=== PATIENT | female | born 1960 | race Caucasian/White ===

== ENCOUNTER 2020-10-10 16:29 | Emergency (ER) | payer OTHER ==
[~2020-10-10] VITALS: Ht 157.5 cm; Wt 68.0 kg
[~2020-10-10 16:29] MED LIST: LOSARTAN-HCTZ1 EAC1 PO; PRILOSEC20 MG PO; SIMVASTATIN20 MG PO; TOPROL XL100 MG PO
[2020-10-10] MEDS ORDERED: POTASSIUM CHLORIDE 20 MEQ TAB CR PO STA (17:25)
--- OUTSIDE RECORDS SUMMARY | 2020-10-10 17:28 | XMS REPORT | Continuity of Care Document ---
Author Author [facility] t Organization [facility] Address 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 9 - HYPERTENSION NO Active 07/24/2015 [facility] [place] Diagnosis Active 2015-07-24 00:01:00 2015-08-12 12:56:00 [facility] 786.5 - CHEST PAIN 786. 5 - CHEST PAIN Active 08/23/2013 [facility] [place] Diagnosis Active 2013-08-23 00:01:00 2013-08-25 09:45:00 [facility] Allergies, Adverse Reactions, Alerts This patient has no known allergies or adverse reactions. Social History Social Habit Start Date Stop Date Quantity Comments Source Sex Assigned At [facility] Social History 2015-08-13 04:59:00 2015-08-13 04:59:00 [facility] Medications This patient has no known medications. Procedures Procedure Date / Time Performed Performing Clinician Sourc e XR CHEST 2 VIEWS 2020-04-12 13:30:00 Emily Mohamud [facility] Plan of Care Planned Activity Planned Date Details Comments Source Future Scheduled Test 2020-07-23 00:00:00 INFLUENZA VACCINE (#1) [code = INFLUENZA VACCINE (#1)] [facility] r Future Scheduled Test 2006 00:00:00 Lipid panel (proce dure) [code = 66677453] [facility] Future Scheduled Test 1982 00:00:00 Screening for [facility] gnant neoplasm of cervix (procedure) [code = 171487461] [facility] Future Scheduled Test 1967 00:00:00 PNEUMOCOCCAL VACCI NE 0-64 YRS (1 of 1 - PPSV23) [code = PNEUMOCOCCAL VACCINE 0-64 YRS (1 of 1 - PPSV23)] [facility] Future Scheduled Test 1961 00:00:00 Screening for priya gnant neoplasm of breast (procedure) [code = 455532346] [facility] Future Scheduled Test 1961 00:00:00 Screening for priya gnant neoplasm of colon (procedure) [code = 023782738] [facility] Encounters Start Date/Time End Date/Time Encounter Type Admission Type [facility] Care Department Encounter ID Source 2015-08-12 12:47:00 2015-08-12 23:59:00 Outpatient Asiya Gross [facility] [id number] Results Test Description Test Time Test Comments Results Result Comments Source RAD, CHEST, 2 VIEWS 2020-04-12 13:32:00 Reason for Exam:->j25.10 FINAL REPORT INDICATION: j25.10 COMPARISON: None TECHNIQUE: Frontal and lateral views of the chest. FINDINGS: Lungs and pleura: Clear lungs. No effusion.Heart and mediastinum: Normal heart size. Unremarkable mediastinal contours.Osseous structures: No acute abnormality.Additional findings: None. IMPRESSION: No acute intrathoracic abnormality. Signed: Angelita Nolasco MDReport Verified Date/Time: 04/12/2020 13:32:32 Reading Location: [facility] Radiology Reading Room Chest 2 Views 2020-04-12 13:32:00 Interface, External Ris In - 04/12/2020 1:35 PM CDTFINAL REPORT INDICATION: j25.10 COMPARISON: None TECHNIQUE: Frontal and lateral views of the chest. FINDINGS: Lungs and pleu ra: Clear lungs. No effusion.Heart and mediastinum: Normal heart size. Unremarkable mediastinal contours.Osseous structures: No acute abnormality.Additional findings: None. IMPRESSION: No acute intrathoracic abnormality. Signed: Angelita Nolasco Verified Date/Time: 04/12/2020 13:32:32 Reading Location: [facility] Radiology Reading Room [facility] BREAST ULTRASOUND BILATERAL 2019-11-21 12:10:58 - BREAST ULTRASOUND BILATERALULTRASOUND OF BOTH BREASTS AND BOTH AXILLA: 11/20/2019CLINICAL: Dense breasts. Comparison is made to exams dated 11/20/2019 mammogram, 10/17/2018 ultrasound, 10/12/2017 ultrasound, and 09/22/2016 ultrasound - [facility]. Real-time ultrasound of both breasts and both axilla and clinical breast exam were performed. No abnormalities were seen sonographically in either breast or either axilla. Clinical breast exam was unremarkable.IMPRESSION: NEGATIVE There is no sonographic evidence of malignancy. Patient has been informed that she has areas of dense breast tissue that could make it difficult to find a small cancer. A screening mammogram and supplemental ultrasound for dense breast tissue is recommended in 1 year. Ritika Birch M.D. dm/:11/21/2019 12:10:58 Sound Recording Technician: Gege PHILLIPS, [facility] sent: BIRADS 1-2 Combo FU Letter Ultrasound BI-RADS: 1 Negative SCR MAMM BILATERAL AVA CAD DIGITAL 2019-11-21 11:31:31 - SCR MAMM BILATERAL AVA CAD DIGITALBILATERAL DIGITAL SCREENING MAMMOGRAM 3D/2D WITH CAD: 11/20/2019CLINICAL: Asymptomatic. Digital breast tomosynthesis was performed in addition to routine CC and MLO views. Current mammographic images were evaluated by either a [employer] M-Vu or a [employer] CAD (computer aided detection system). Comparison is made to exams dated 10/17/2018 mammogram, mammogram, 09/22/2016 mammogram, 07/12/2015 mammogram, and 12/13/[facility] The tissue of both breasts is heterogeneously dense. This may lower the sensitivity of mammography. No suspicious mass, architectural distortion, malignant type calcification, or lymph node abnormality detected. IMPRESSION: NEGATIVEBilateral ultrasound pending for additional evaluation. There is no mammographic evidence of malignancy. Ritika srinivasan/penrad:11/21/2019 11:31:31 Entry: - 11/21/2019 14:29:18Imaging Technologist: Boris PHILLIPS[facility] BI-RADS: 1 Negative BREAST ULTRASOUND BILATERAL 2018-10-17 16:51:00 - DIAG MAMM BILATERAL AVA CAD DIGITALBILATERAL DIGITAL DIAGNOSTIC MAMMOGRAM 3D/2D WITH CAD: 10/17/2018CLINICAL: 12 Month follow-up. Digital breast tomosynthesis was performed in addition to routine CC and MLO views. Current mammographic images were evaluated by either a [employer] M[employer]u or a [employer] ImageChecker CAD (computer aided detection system). Comparison is made to exams dated 10/12/2017 mammo gram, 09/22/2016 mammogram, and 07/12/2015 [facility]. The tissue of both breasts is heterogeneously dense. This may lower the sensitivity of mammography. There are post operative findings and biopsy clips in the right breast. No suspicious mass, architectural distortion, malignant type calcification, or lymph node abnormality detected. INCOMPLETE ASSESSMENT: ADDITIONAL IMAGING EVALUATION RECOMMENDEDUltrasound pending for additional evaluation. Resume annual screening mammography in one year. - BREAST ULTRASOUND BILATERALULTRASOUND OF BOTH BREASTS AND BOTH AXILLA: Comparison is made to exams dated 10/12/2017 mammogram, 09/22/2016 mammogram, and 07/12/2015 [facility]. Real-time ultrasound of both breasts and both axilla was performed. No abnormalities were seen sonographically in either breast or either axilla. Clinical breast exam was unremarkable.IMPRESSION: NEGATIVE There is no sonographic evidence of malignancy. Patient has been informed that she has areas of dense breast tissue that could make it difficult to find a small cancer. A screening mammogram and supplemental ultrasound for dense breast tissue is recommended in 1 year.Ritika Birch M.D. dm/:10/17/2018 16:51:00 Sound Recording Technician: Jannie PHILLIPS, [facility] sent: BIRADS 1-2 Combo FU Letter Mammogram BI-RADS: 0 Indeterminate Ultrasound BI-RADS: 1 Negative DIAG MAMM BILATERAL AVA CAD DIGITAL 2018-10-17 16:51:00 - DIAG MAMM BILATERAL AVA CAD DIGITALBILATERAL DIGITAL DIAGNOSTIC MAMMOGRAM 3D/2D WITH CAD: 10/17/2018CLINICAL: 12 Month follow-up. Digital breast tomosynthesis was performed in addition to routine CC and MLO views. Current mammographic images were evaluated by either a [employer] M-Vu or a [employer] ImageChecker CAD (computer aided detection system). Comparison is made to exams dated 10/12/2017 mammo gram, 09/22/2016 mammogram, and 07/12/2015 mammogram - [facility]-. The tissue of both breasts is heterogeneously dense. This may lower the sensitivity of mammography. There are post operative findings and biopsy clips in the right breast. No suspicious mass, architectural distortion, malignant type calcification, or lymph node abnormality detected. INCOMPLETE ASSESSMENT: ADDITIONAL IMAGING EVALUATION RECOMMENDEDUltrasound pending for additional evaluation. Resume annual screening mammography in one year. - BREAST ULTRASOUND BILATERALULTRASOUND OF BOTH BREASTS AND BOTH AXILLA: Comparison is made to exams dated 10/12/2017 mammogram, 09/22/2016 mammogram, and 07/12/2015 mammogram - [facility]-. Real-time ultrasound of both breasts and both axilla was performed. No abnormalities were seen sonographically in either breast or either axilla. Clinical breast exam was unremarkable.IMPRESSION: NEGATIVE There is no sonographic evidence of malignancy. Patient has been informed that she has areas of dense breast tissue that could make it difficult to find a small cancer. A screening mammogram and supplemental ultrasound for dense breast tissue is recommended in 1 year.Rtiika Birch M.D. dm/:10/17/2018 16:51:00 Sound Recording Technician: Jannie PHILLIPS, [facility] sent: BIRADS 1-2 Combo FU Letter Mammogram BI-RADS: 0 Indeterminate Ultrasound BI-RADS: 1 Negative
--- OUTSIDE RECORDS SUMMARY | 2020-10-10 17:28 | XMS REPORT | Continuity of Care Document ---
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 Phone [employer] Unavailable Un available Problems Problem Status Onset Date Classification Date Reported Comments Source 401.9 - HYPERTENSION NO Active 07/24/2015 [facility] [place] 786.5 - CHEST PAIN Active 08/23/2013 [facility] [place] Medications No Data Provided for This Section Allergies, Adverse Reactions, Alerts No Known Medication Allergies Immunizations No Data Provided for This Section Results No Data Provided for This Section Pathology Reports No Data Provided for This Section Diagnostic Reports Report Value Date Source Retroperitoneal complete w Doppler US EXAM: Retroperitoneal complete with doppler US HISTORY: 401.9 Unspecified Essential Hypertension COMPARISON: None Findings: The right kidney measures 11.7 cm in length. The left kidney measures 10.4 cm in length. The renal parenchyma is normal in echogenicity. There is a 7 mm left renal cyst. No hydronephrosis is visualized. No mass or stone. The urinary bladder is unremarkable. Both ureteral jets are seen. Doppler evaluation was performed of the kidneys. Evaluation of the intrarenal arteries of the right kidney demonstrates normal appearing arterial waveforms with resistive indices ranging from 0.61 to 0.63. Evaluation of the main right renal artery in the hilum shows a normal appearing arterial waveform with peak systolic velocity of 153 cm/sec giving a renal artery to aortic ratio of 2.3. The main renal vein in the hilum is patent. Evaluation of the intrarenal arteries of the left kidney demonstrates normal appearing arterial waveforms with resistive indices ranging from 0.61 to 0.62. Evaluation of the main left renal artery in the hilum shows a normal appearing arterial waveform with peak systolic velocity of 168 cm/sec giving a renal artery to aortic ratio of 2.5. The main renal vein in the hilum is patent. Doppler evaluation of the abdominal aorta and IVC show normal waveforms. IMPRESSION: No sonographic evidence of hemodynamically significant renal artery stenosis. 08/12/2015 [facility] [place] Carotid artery Doppler bilat US Exam: Bilateral Carotid Doppler Ultrasound Reason for Exam: Unspecified essential hypertension Comparison Exam: None Discussion: Real time grayscale, color Doppler imaging, and spectral waveform analysis was performed of the bilateral extracranial carotid arterial system. Right: No significant intimal thickening or plaques seen within the right common carotid artery. Minimal amount of hard plaque seen in the right ICA bulb. The waveforms are within normal limits. The right vertebral artery is antegrade in flow. The highest velocity within the right ICA system is 72 cm/sec. The ICA/CCA ratio is 0.76. Left: No significant intimal thickening or plaques seen within the left common carotid artery. Minimal amount of hard plaque seen in the left ICA bulb. The left vertebral artery is antegrade in flow. The highest velocity within the left ICA system is 82 cm/sec. The ICA/CCA ratio is 0.93. Impression: 1. Minimal amount of plaque seen within the right and left ICA bulbs, without evidence for significant stenoses. (Consensus Panel Villagomez Scale and Doppler ultrasound criteria). 2. Vertebral arteries are antegrade in flow. 08/12/2015 [facility] Esophagus barium swallow Exam: Barium swallow esophagram Reason for Exam: Chest discomfort Comparison Exam: Chest x-ray 11/09/2011 Discussion: Flavorer view of the cervical spine and soft tissues of the neck are unremarkable. Patient ingested air crystals and barium without incident. Upon deglutition, there was no evidence seen for aspiration or penetration. The piriform sinuses are unremarkable. However, there is a persistent crescentic shaped filling defect seen within the left vallecula. If clinically warranted, consider direct endoscopy for further characterization. The esophagus is unremarkable in appearance, without evidence for mucosal abnormalities, abnormal filling defects, or external mass effect. However, there is evidence for a moderate amount of tertiary contraction waves throughout the esophagus. During the examination, there was no evidence seen for gastroesophageal reflux. The visualized portions of the stomach are unremarkable. Fluoro time 2 minutes, 7 seconds. Impression: 1. Moderate amount of tertiary contract ion waves are seen throughout the esophagus. No evidence seen for gastroesophageal reflux. 08/25/2013 [facility] D[facility] Consultation Notes No Data Provided for This Section Discharge Summaries No Data Provided for This Section History and Physicals No Data Provided for This Section Vital Signs No Data Provided for This Section Encounters Location Location Details Encounter Type Encounter Number Reason For Visit Attending Provider ADM Date DC Date Status Source OD [id number] 786.5 - CHEST PAIN CHE TIDWELL 08/25/2013 Active [facility] - [place] [facility] [id number] Asiya Renato 08/12/2015 08/13/2015 [facility] [place] Procedures No Data Provided for This Section Assessment and Plan No Data Provided for This Section Plan of Care No Data Provided for This Section Social History Social History Date Source No data available for this section 08/13/2015 [facility] [place] Family History No Data Provided for This Section Advance Directives No Data Provided for This Section Functional Status No Data Provided for This Section
--- OUTSIDE RECORDS SUMMARY | 2020-10-10 17:28 | XMS REPORT | Clinical Summary ---
Author Author [facility] [employer] Organization 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 Phone Pcp, No PCP Unavailable Allergies Not on File Medications Not on file Active Problems Not on file Encounters Care Team Description Date Type Specialty Emily Mohamud MD Atherosclerosis of [place] coronary arter y of [place] heart without angina pectoris; Screening for ischemic heart disease 04/12/2020 Hospital Encounter Emily Mohamud MD Atherosclerosis of [place] coronary arter y of [place] heart without angina pectoris (Primary Dx); Screening for ischemic heart disease 04/12/2020 Outside Orders after 10/10/2019 Social History Date Tobacco Use Types Packs/Day Years Used Never Assessed Sex Assigned at Date Recorded Not on file Last Filed Vital Signs Not on file Plan of Treatment Health Maintenance Due Date Last Done Comments BREAST CANCER SCREENING 1961 COLON CANCER SCREENING 1961 COLONOSCOPY PNEUMOCOCCAL VACCINE 0-64 1967 YRS (1 of 1 - PPSV23) CERVICAL CANCER SCREENING 1982 PAP ONLY (Age 21-65) LIPID PANEL 2006 INFLUENZA VACCINE (#1) 2020 Procedures Comments Procedure Name Priority Date/Time Associated Diag nosis XR CHEST 2 VIEWS Routine 04/12/2020 Atheroscleros is of [place] 1:30 PM CDT coronary artery of [place] heart without angina pectoris Screening for ischemic heart disease after 10/10/2019 Results * XR Chest 2 Views (04/12/2020 1:30 PM CDT) Specimen Narrative Performed At FINAL REPORT [facility] INDICATION: j25.10 COMPARISON: None TECHNIQUE: Frontal and lateral views of the chest. FINDINGS: Lungs and pleura: Clear lungs. No effus ion. Heart and mediastinum: Normal heart siz e. Unremarkable mediastinal contours. Osseous structures: No acute abnormalit y. Additional findings: None. IMPRESSION: No acute intrathoracic abnormality. Signed: Angelita Nolasco MD Report Verified Date/Time: 04/12/2020 13:32:32 Reading Location: [facility] Reading Room Procedure Note Interface, External Ris In - 04/12/2020 1:35 PM CDT FINAL REPORT INDICATION: j25.10 COMPARISON: None TECHNIQUE: Frontal and lateral views of the chest. FINDINGS: Lungs and pleura: Clear lungs. No effusion. Heart and mediastinum: Normal heart size. Unremarkable mediastinal contours. Osseous structures: No acute abnormality. Additional findings: None. IMPRESSION: No acute intrathoracic abnormality. Signed: Angelita Nolasco MD Report Verified Date/Time: 04/12/2020 13:32:32 Reading Location: [facility] Reading Room Performing Organization Address City/State/Zipcode Ph one Number GE RIS after 10/10/2019 Insurance Type Payer Benefit Subscriber ID Effective Phone Address Plan / Dates Group HMO/POS [facility] [id number] 20-P CARE POS SELECT resent CHOICE [id number]
--- NOTE | 2020-10-10 17:29 | Emergency Department Note ---
History of Present Illnes History of Present Illness Chief Complaint: Abdominal Complaints History of Present Illness This is a 60 year old female Chief Complaint Comment WKS OF INTERMITTAN RT BACK AND RLQ ABD PAIN. PT JOVIAL AND PLEASANT DURING TRIAGE. STATES SHE AND SPOUSE ARE GOING CAMPING TOMORROW, AND SHE WOULD LIKE TO R/O KIDNEY STONE OR APPY. +HYST. +HX STONES, NO UTI S/S. AAOX4, AMBULATORY. NO N/V, NO FEVER, NO DIARRHEA. . Historian: Patient, Family Member Arrival Mode: Car Onset (how long ago): week(s) (2) Location: RLQ ABDOMEN Quality: DULL Radiation: Denies non-radiation, Denies back, Denies neck, Denies extremity, Denies abdomen, Denies periumbilical, Denies flank, Denies proximal, Denies distal, Denies other Severity: mild Onset quality: gradual Duration (how long): week(s) (2) Timing of current episode: intermittent Progression: waxing and waning Chronicity: new Context: Denies recent illness, Denies recent surgery, Denies recent immobilization, Denies recent travel, Denies trauma/injury, Denies new medications, Denies hx of DVT/PE, Denies non-compliance w/ medications, Denies other Relieving factors: none Exacerbating factors: none Associated symptoms: Denies denies other symptoms, Denies confusion, Denies chest pain, Denies cough, Denies diaphoresis, Denies fever/chills, Denies headaches, Denies loss of appetite, Denies malaise, Denies nausea/vomiting, Denies rash, Denies seizure, Denies shortness of breath, Denies syncope, Denies weakness, Denies other Treatments prior to arrival: none Past Medical/Family History Physician Review I have reviewed the patient's past medical and family history. Any updates have been documented here. Past Medical History Recent Fever: No Clinical Suspicion of Infectio: No New/Unexplained Change in Ment: No Past Medical History: Hypertension, Cancer, Kidney Stones, Anxiety, GERD, Hyperlipedemia Other Medical History: MELANOMA REMOVED OFF BACK. (SKIN CANCER) Past Surgical History: Hysterectomy Other Surgery: MELANOMA REMOVED ON BACK Social History Smoking Cessation: Never Smoker Counseling Performed: No Alcohol Use: None Any Illegal Drug Use: No Physically hurt or threatened: No Other Last Tetanus: UTD Any Pre-Existing Lines (PICC,: No Review of Systems Review of Systems Constitutional: Reports no symptoms EENTM: Reports no symptoms Cardiovascular: Reports no symptoms; Denies as per HPI, Denies chest pain, Denies edema, Denies palpitations, Denies syncope, Denies other Respiratory: Reports no symptoms; Denies as per HPI, Denies change in phlegm color, Denies chest congestion, Denies cough, Denies hemoptysis, Denies excessive phlegm production, Denies pain on inspiration, Denies pain with cough, Denies dyspnea, Denies dyspnea on exertion, Denies snoring, Denies stridor, Denies wheezing, Denies other Gastrointestinal: Reports as per HPI Genitourinary: Reports no symptoms Musculoskeletal: Reports no symptoms Integumentary: Reports no symptoms; Denies as per HPI, Denies change in color, Denies change in hair/nails, Denies dryness, Denies lesions, Denies lumps, Denies rash, Denies poor turgor, Denies ecchymosis, Denies other Neurological: Reports no symptoms; Denies as per HPI, Denies headache, Denies numbness, Denies paresthesia, Denies pre-existing deficit, Denies seizure, Denies tingling, Denies tremors, Denies weakness, Denies other Psychological: Reports no symptoms; Denies as per HPI, Denies anxiety, Denies depressed, Denies emotional problems, Denies other Endocrine: Reports no symptoms Hematological/Lymphatic: Reports no symptoms Physical Exam Related Data Allergies: Coded Allergies: Penicillins (Verified Allergy, 11/13/12) Triage Vital Signs Vital Signs Date Time Temp Pulse Resp B/P (MAP) Pulse Ox O2 Delivery O2 Flow Rate FiO2 10/10/20 16:44 99.7 112 20 148/70 98 Room Air Vital signs reviewed: Yes Physical Exam CONSTITUTIONAL Constitutional: Present well-developed, Present well-nourished HENT HENT: Present normocephalic, Present atraumatic, Present oropharynx clear/moist, Present nose normal; Absent oropharynx normal, Absent mucosae dry, Absent nasal discharge, Absent nasal congestion, Absent rhinorrhea, Absent oropharyngeal exudate, Absent tonsillar excudate, Absent pharynx abnormal, Absent erythema, Absent dentition normal, Absent dental caries, Absent other HENT L/R: Present left ext ear normal, Present right ext ear normal; Absent left TM normal, Absent right TM normal, Absent left canal normal, Absent right canal normal, Absent left impacted cerumen, Absent right impacted cerumen, Absent left bulging TM, Absent right bulging TM, Absent other EYES Eyes: Reports PERRL, Reports conjunctivae normal; Denies EOM normal, Denies lids normal, Denies left eye discharge, Denies right eye discharge, Denies scleral icterus, Denies other NECK Neck: Present ROM normal; Absent supple, Absent thyromegaly, Absent tracheal deviation, Absent stridor, Absent JVD, Absent cervical adenopathy, Absent carotid bruit, Absent other PULMONARY Pulmonary: Present effort normal, Present breath sounds normal; Absent respiratory distress, Absent rales, Absent rhonchi, Absent chest tenderness, Absent other CARDIOVASCULAR Cardiovascular: Present regular rhythm, Present heart sounds normal, Present capillary refill normal, Present normal rate GASTROINTESTINAL Abdominal: Present soft, Present nontender, Present bowel sounds normal; Absent distension, Absent tender, Absent guarding, Absent mass, Absent rebou nd, Absent hernia, Absent left CVA tenderness, Absent right CVA tenderness, Absent other GENITOURINARY Genitourinary: Present exam deferred SKIN Skin: Present warm, Present dry; Absent erythema, Absent pale, Absent rash, Absent jaundiced, Absent bruising, Absent lesion, Absent other MUSCULOSKELETAL Musculoskeletal: Present ROM normal; Absent edema, Absent deformity, Absent tenderness, Absent swelling, Absent other NEUROLOGICAL Neurological: Present alert, Present oriented x 3, Present no gross motor or sensory deficits PSYCHOLOGICAL Psychological: Present mood/affect normal, Present judgement normal Results Laboratory Lab results reviewed: Yes Imaging Imaging results reviewed: Yes Assessment & Plan Medical Decision Making MDM RENAL COLIC APPENDICITIS Reassessment Reassessment BETTER Assessment & Plan Final Impression: (1) Abdominal pain, right lower quadrant (2) Urinary tract infection Depart Disposition: HOME, SELF-CARE Last Vital Signs Date Time Temp Pulse Resp B/P (MAP) Pulse Ox O2 Delivery O2 Flow Rate FiO2 10/10/20 16:44 99.7 112 20 148/70 98 Room Air Home Meds Reported Medications Losartan/Hydrochlorothiazide (LOSARTAN-HCTZ 100-25 MG TAB) 1 Each Tablet, 1 TAB PO DAILY 11/13/12 Simvastatin (SIMVASTATIN) 20 Mg Tablet, 1 TAB PO DAILY 11/13/12 Metoprolol Succinate (TOPROL XL) 100 Mg Tab.er.24h, 1 TAB PO DAILY 11/13/12 Omeprazole (PRILOSEC) 20 Mg Capsule.dr, 1 TAB PO DAILY 11/13/12 AGGIE HATCH MD Oct 10, 2020 17:29
--- NOTE | 2020-10-10 17:44 | Diagnostic Imaging Report ---
EXAM: CT Abdomen and Pelvis WITHOUT contrast INDICATION: ^RLQ PAIN COMPARISON: None. TECHNIQUE: Abdomen and pelvis were scanned utilizing a multidetector helical scanner from the lung base to the pubic symphysis without administration of IV contrast. Absence of intravenous contrast decreases sensitivity for detection of focal lesions and vascular pathology. Coronal and sagittal reformations were obtained. Routine protocol was performed. IV CONTRAST: None ORAL CONTRAST: None COMPLICATIONS: None RADIATION DOSE: Total DLP: 703 mGy*cm Estimated effective dose: (DLP x 0.015 x size factor) mSv CTDIvol has been reviewed. It is below the limits set by the Radiation Protocol Committee (RPC). Dose modulation, iterative reconstruction, and/or weight based adjustment of the mA/kV was utilized to reduce the radiation dose to as low as reasonably achievable. FINDINGS: LINES and TUBES: None. LOWER THORAX: Unremarkable HEPATOBILIARY: No focal hepatic lesions. No biliary ductal dilation. GALLBLADDER: No radio-opaque stones or sludge. No wall thickening. SPLEEN: No splenomegaly. PANCREAS: No focal masses or ductal dilatation. ADRENALS: No adrenal nodules KIDNEYS/URETERS: No hydronephrosis. No cystic or solid mass lesions. No stones. GI TRACT: No abnormal distention, wall thickening, or evidence of bowel obstruction. Appendix is normal. PELVIC ORGANS/BLADDER: Unremarkable. LYMPH NODES: No lymphadenopathy. VESSELS: There is moderate atherosclerotic disease in the aorta and major arterial branches. PERITONEUM / RETROPERITONEUM: No free air or fluid. BONES: There are mild degenerative changes in the spine. SOFT TISSUES: Unremarkable. IMPRESSION: No acute abdominopelvic abnormality identified. Signed by: Andrey Jones MD on 10/10/2020 5:41 PM
[2020-10-10] MEDS ORDERED: POTASSIUM CHLORIDE 20 MEQ TAB CR PO ONE (17:56)
== END 2020-10-10 18:40 | disposition home or self-care (01) ==
LOC: FSED 16:40
DX: R10.31 Right lower quadrant pain (principal); I10 Essential (primary) hypertension; E78.5 Hyperlipidemia, unspecified; F41.9 Anxiety disorder, unspecified; K21.9 Gastro-esophageal reflux disease without esophagitis; Z85.828 Personal history of other malignant neoplasm of skin
CPT/HCPCS: 74176; 80053; 81003; 85025; 99284